=== PATIENT | male | born 1945 | race Caucasian/White ===

== ENCOUNTER 2020-06-15 09:09 | Day surgery (SDC) | payer MEDICARE, BC ==
[~2020-06-15 09:09] MED LIST: CHONDR SU A NA/HYALUR INTRAOC KIT (SURGICARE) ONE; EPINEPHRINE INJ/PF 1 MG/1 ML AMPULE ONE; KETOROLAC TROMETHAMINE 0.45% 4 DROP/0.4 ML DROPERETTE OS PRN; LIDOCAINE 1%/PHENYLEPHRINE 1.5% 1 ML VIAL ONE
[2020-06-15] MEDS: TROPICAMIDE 1% OPH SOLN 15 ML OS PRN ×3 (09:28→09:48)
[2020-06-15] MEDS: BESIFLOXACIN HCL 0.6% OPH SUSP 5 ML BOTTLE OS PRN ×4 (09:28→10:35)
[2020-06-15] MEDS: CYCLOPENTOLATE 0.2%/PHENYLEPHRINE 1% OPH SOLN 2 ML OS PRN ×3 (09:28→09:48)
[2020-06-15] MEDS: TETRACAINE HCL 0.5% OPH SOLN 4 ML OS PRN ×3 (09:29→10:06)
[2020-06-15] MEDS ORDERED: MIDAZOLAM 2 MG/2 ML INJ ONE (09:49)
[2020-06-15] MEDS ORDERED: FENTANYL CITRATE INJ/PF 100 MCG/2 ML AMPUL ONE (09:49)
[2020-06-15] MEDS: DORZOLAMIDE HCL 2%/TIMOLOL MALEAT 0.5% OPH SOLN 10 ML OS PRN ×2 (10:35)
[2020-06-15] MEDS: PREDNISOLONE ACETATE 1% OPH SUSP 5 ML OS PRN ×2 (10:35)
--- OUTSIDE RECORDS SUMMARY | 2020-06-15 14:30 | XMS REPORT ---
:1945 [facility] [place] [address] [place] [address] Care Team Providers Name Role Phone Kandy Primary Care Physician Unavailable Kandy BERGERON Attending Clinician Unavailable Eugene Wilkins Attending Clinician Unavailable Leah Baker Attending Clinician Unavailable Allergies, Adverse Reactions, Alerts This patient has no known allergies or adverse reactions. Medications Ordered Filled Start Stop Current Ordering Indication Dosage Frequency Signature Comments Components Medication Medication Date Date Medication? Clinician (SIG) Name Name Rosuvastati 2019-05 Yes Hipolito Rosuvastat n Calcium 1-06 Kandy BERGERON in Calcium 10 MG Oral 14:59: 10 MG Oral Tablet 03 Tablet Take 1 tablet by mouth once daily Quantity: 90 Refills: 0 Hipolito Gaitan MD Start : 31-Mar-2020 Active Rosuvastati 2019- No Hipolito Holguinuvastat n Calcium 8-05 Kandy BERGERON in Calcium 10 MG Oral 09:11: 10 MG Oral Tablet 51 Tablet Take 1 tablet by mouth once daily Quantity: 90 Refills: 0 Hipolito Gaitan MD Start : 29-Dec-2019 Active Montelukast 2019- Yes Hipolito Montelukas Sodium 10 3- Kandy BERGERON t Sodium MG Oral 00:00: 10 MG Oral Tablet 00 Tablet TAKE 1 TABLET IN THE EVENING. Quantity: 90 Refills: 3 Hipolito Gaitan MD Start : 0Active metFORMIN 2017-0 Yes Hipolito metFORMIN HCl ER 500 8- Kandy BERGERON HCl ER 500 MG Oral 00:00: MG Oral Tablet 00 Tablet Extended Extended Release 24 Release 24 Hour Hour TAKE 1 TABLET BY MOUTH ONCE A DAY DIRECTED Quantity: 90 Refills: 3 Hipolito Gaitan MD Start : 29-Dec-2017 Active Sildenafil 2017- Yes Hipolito Sildenafil Citrate 20 9-05 Kandy BERGERON Citrate 20 MG Oral 00:00: MG Oral Tablet 00 Tablet Take 3 tablest 1 hour prior to intercours e. Quantity: 60 Refills: 6 Hipolito Gaitan MD Start : 28-Jan-2017 Active Amoxicillin Yes General 875MG TWO TIMES /Pot 12-21 Acute Care DAILY Clavulanate 00:00: Hospital 00 Azithromyci Yes General 0MG EVERY DAY n 7 Acute Care 00:00: Hospital 00 Lisinopril 2015-05 Yes General 20MG EVERY DAY 0 Acute Care 00:00: Hospital 00 Rosuvastati 2015-05 Yes General 10MG EVERY DAY n Calcium Acute Care 00:00: Hospital 00 Omeprazole 2015-05- No General 40MG EVERY DAY 012-21 Acute Care 00:00: 09:40 Hospital 00 :00 Levofloxaci 2015-05- No General 750MG EVERY DAY n 0-12-21 Acute Care 00:00: 09:40 Hospital 00 :00 Hydrocodone 2015-05- No General 5ML Q6H PRN Bit/Homatro 12-21 Acute Care For Cough pine 00:00: 09:40 Hospital 00 :00 Omeprazole Yuan Mcmillan Omeprazole 40 MG Oral 01-21 Kandy BERGERON 40 MG Oral Capsule 00:00: Capsule Delayed 00 Delayed Release Release Take 1 capsule by mouth every morning Quantity: 90 Refills: 3 Hipolito Gaitan MD Start : 1Active Lisinopril Yes Hipolito Lisinopril 40 MG Oral 08-15 Kandy BERGERON 40 MG Oral Tablet 00:00: Tablet 00 Take 1 tablet by mouth once daily Quantity: 90 Refills: 3 Hipolito Gaitan MD Start : 0Active Crestor 10 Yes Hipolito Crestor 10 MG Oral 01-11 Kandy MD MG Oral Tablet 00:00: Tablet 00 Take 1 tablet by mouth once daily Quantity: 90 Refills: 3 Hipolito Gaitan MD Start : 9Active Orphenadrin Yes Hipolito 1 Q0.5D Orphenadri e Citrate 01-11 Kandy BERGERON ne Citrate ER 100 MG 00:00: ER 100 MG Oral Tablet 00 Oral Extended Tablet Release 12 Extended Hour Release 12 Hour TAKE 1 TABLET TWICE DAILY PRN Quantity: 60 Refills: 6 Hipolito Gaitan MD Start : 9Active Problems Condition Condition Condition Status Onset Resolution Last Treatin g Comments Name Details Category Date Date Treatment Clinician Date Problem Not on file Condition Colon, Colon, Problem Active diverticulo diverticulo sis sis Chest wall Chest wall Problem Active shadow shadow image image Solitary Solitary Problem Active pulmonary pulmonary nodule nodule Encounter Encounter Problem Active for for immunizatio immunizatio n n Dyspepsia Dyspepsia Problem Active Urinary Urinary Problem Active frequency frequency Elevated Elevated Problem Active transaminas transaminas e level e level Benign Benign Problem Active hypertensiv hypertensiv e heart e heart disease disease 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 BPH (benign BPH (benign Problem Active prostatic prostatic hyperplasia hyperplasia ) ) Pre-diabete Pre-diabete Problem Active s s 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 Acute upper Acute upper Problem Inactiv respiratory respiratory e infection infection Heat Heat Finding Inactiv exhaustion exhaustion e Hematuria Hematuria Finding Inactiv e Pneumonia Pneumonia Finding Inactiv e Procedures Procedure Date / Time Performed Performing Clinician Devic e HGBA1C 2020-03-07 00:00:00 CMP(Complete Metabolic Panel) 2020-03-07 00:00:00 CBC 2020-03-07 00:00:00 PSA 2020-03-07 00:00:00 LACTATE 2016-12-21 13:48:00 Rei Wilkins URINALYSIS 2016-12-21 10:08:00 Rei Wilkins COMPREHENSIVE METABOLIC PANEL 2016-12-21 09:47:00 Moshe Huerta opedic Pt For CBC W/ DIFFERENTIAL 2016-12-21 09:47:00 Bradley, Orthopedic Pt For POCT GLUCOSE 2016-12-21 09:43:00 Bradley, Orthopedic Pt For CHEST PA AND LATERAL 2016-12-21 00:00:00 ROUTINE VENIPUNCTURE 2016-12-21 00:00:00 Urine Culture 2016-12-21 00:00:00 Blood Culture 2016-12-21 00:00:00 COMPREHENSIVE METABOLIC PANEL 2016-02-25 17:58:00 Lindy Ye CBC W/ DIFFERENTIAL 2016-02-25 17:58:00 Chloe Ye l TROPONIN I 2016-02-25 17:58:00 Chloe Ye URINALYSIS 2016-02-25 17:11:00 Bradley, Orthopedic Pt For URINE MICROSCOPIC 2016-02-25 17:11:00 Bradley, Orthopedic Pt For CHEST PA AND LATERAL 2016-02-25 00:00:00 History of Knee Surgery Results Test Description Test Time Test Comments Text Results Atomic Results Result Comments CBC 2020-03-07 09:24:00 Test Item Value Reference Range Comments White Blood Cell (test code = White Blood Cell) 6.5 K/uL 3.5-11.1 Red Blood Cell (test code = Red Blood Cell) 4.38 {M/uL} 4.27 -5.49 Hemoglobin (test code = Hemoglobin) 13.4 g/dL 12.9-16.1 Hematocrit (test code = Hematocrit) 41 % 38-47 Mean Corpuscular Volume (test code = Mean Corpuscular Volume) 93 .4 fL 79.0-95.0 Mean Corpuscular Hemoglobin (test code = Mean Corpuscular 30.6 p g/mL 27.0-33.0 Hemoglobin) Mean Corpuscular Hemoglobin Concentration (test code = Mean 32.8 g/dL 33.5-35.5 Corpuscular Hemoglobin Concentration) Red Cell Distribution Width (test code = Red Cell 13.2 % 12.0-15.0 Distribution Width) Platelet (test code = Platelet) 136 K/uL 130-353 Mean Platelet Volume (test code = Mean Platelet Volume) 12.5 fL 7.5-10.7 Neutrophil Count, absolute (test code = Neutrophil Count, 3.7 K/ uL 1.9-7.2 absolute) Neutrophil Count Percentage (test code = Neutrophil Count 57.6 % 43.0-72.0 Percentage) Lymphocyte Count, absolute (test code = Lymphocyte Count, 1.8 K/ uL 1.1-2.7 absolute) Lymphocyte Count Percentage (test code = Lymphocyte Count 28.3 % 17.0-44.0 Percentage) Monocyte Count, absolute (test code = Monocyte Count, 0.7 K/uL 0.3-0.8 absolute) Monocyte Count Percentage (test code = Monocyte Count 10.4 % 4.5-12.4 Percentage) Eosinophil Count, absolute (test code = Eosinophil Count, 0.2 K/ uL 0.0-0.5 absolute) Eosinophil Count Percentage (test code = Eosinophil Count 2.8 % 0.7-7.8 Percentage) Basophil Count, absolute (test code = Basophil Count, 0.0 K/uL 0.0-0.1 absolute) Basophil Count Percentage (test code = Basophil Count 0.6 % 0.2-1.1 Percentage) Nucleated Red Blood Cell, absolute (test code = Nucleated Re d 0.00 K/uL 0.00-0.00 Blood Cell, absolute) Nucleated Red Blood Cell, percentage (test code = Nucleated 0.00 % 0.00-0.00 Red Blood Cell, percentage) Hemoglobin [id number] 09:24:00 Test Item Value Reference Range Comments Hemoglobin A1C (test code = 4548-4) 6.2 % 4.3-6.2 CMP(Complete Metabolic Panel)2020-03-07 09:24:00 Test Item Value Reference Range Comments Glucose (test code = Glucose) 121 mg/dL 74-106 Sodium (test code = Sodium) 143 mmol/L 135-145 Potassium (test code = Potassium) 4.1 mmol/L 3.5-5.3 Chloride (test code = Chloride) 104 mmol/L 98-107 CO2 (test code = CO2) 28 mmol/L 22-30 Creatinine, serum (test code = Creatinine, serum) 0.70 mg/dL 0.10-1.25 Glomerular Filtration Rate (test code = >60 >60 Glomerular Filtration Rate) Glomerular Filtration Rate AA (test code = >60 >60 Glomerular Filtration Rate AA) Blood Urea Nitrogen (test code = Blood Urea 16 mg/dL 9-20 Nitrogen) Calcium (test code = Calcium) 9.4 mg/dL 8.4-10.5 Phosphorus (test code = Phosphorus) 3.1 mg/dL 2.5-4.5 Total Protein (test code = Total Protein) 8.2 g/dL 6.3-8. 2 Albumin (test code = 17437-6) 4.5 g/dL 3.5-5.0 Total Bilirubin (test code = Total Bilirubin) 0.6 mg/dL 0. 2-1.3 Bilirubin, unconj (test code = Bilirubin, unconj) 0.4 mg/dL 0.0-1.1 Bilirubin, Direct (test code = Bilirubin, Direct) 0.2 mg/dL 0.0-0.4 Alkaline Phosphatase (test code = Alkaline 74 U/L 20-15 0 Phosphatase) Alanine Transaminase (test code = Alanine 24 U/L 0-50 Transaminase) Aspartate Aminotransferase (test code = Aspartate 27 U/L 3-36 Aminotransferase) [id number] 09:24:00 Test Item Value Reference Range Comments PSA, total (test code = 1.030 ng/mL 0.000-4.000 PSA perf ormed on Vitros 5600 by PSA, total) Immunometric met hod. [id number] 13:48:00 Test Item Value Reference Range Comments Lactate (test code = Lactate) 0.8 mmol/L 0.5- 2.2 mmol/L Lab - Lactic Acid [id number] 13:48:00 Test Item Value Reference Range Comments Lactic Acid Level (test 0.8 mmol/L 0.5-2.2 Specimen s should be processed code = 59438-6) within 15 minute s of collection and analyzed wit hout delay. Blood [id number] 12:22:00Blood Culture, Routine Comment: BLOOD CULTURE PERIPHERALFinal NO GROWTH - FINAL READ COMMENTS: @---MOBILAB COMMENT--- @ Blood Culture, 2nd Set [[id number] 12/21/16 1216] @---END MOBILAB COMMENT--- [facility] CONVERSION[facility] Culture 2016-12-21 12:16:00Blood Culture, Routine Comment: BLOOD CULTURE PERIPHERALFinal NO GROWTH - FINAL READ [facility] CON[facility] - Urine [id number] 10:08:00 Test Item Value Reference Range Comments Urine Mucus (test code = 8247-9) Rare /LPF Lab - Urine Leukocyte [id number] 10:08:00 Test Item Value Reference Range Comments Urine Leukocyte Esterase (test code = Negative WBC/UL 06043-2) Lab - Urine [id number] 10:08:00 Test Item Value Reference Range Comments Urine Ketones (test code = 22337-6) 20 MG/DL Lab - Urine [id number] 10:08:00 Test Item Value Reference Range Comments Urine Ictotest (test code = 56484-2) Not Reportable Lab - Urine Glucose (UA)2016-12-21 10:08:00 Test Item Value Reference Range Comments Urine Glucose (UA) (test code = 64715-5) Negative MG/DL Lab - Urine [id number] 10:08:00 Test Item Value Reference Range Comments Urine Color (test code = 20327-3) Yellow Lab - Urine [id number] 10:08:00 Test Item Value Reference Range Comments Urine Clarity (test code = 28342-9) Clear Lab - Urine [id number] 10:08:00 Test Item Value Reference Range Comments Urine Blood (test code = 93991-4) Small MG/DL Lab - Urine [id number] 10:08:00 Test Item Value Reference Range Comments Urine Bilirubin (test code = 06090-0) Negative MG/DL Lab - Urine Amorphous [id number] 10:08:00 Test Item Value Reference Range Comments Urine Amorphous Sediment (test code = 8246-1) Trace /HPF Lab - Urine [id number] 10:08:00 Test Item Value Reference Range Comments Urine Source (test code = Urine Source) Clean catch [id number] 10:08:00 Test Item Value Reference Range Comments Urine Source (test code = Urine Source) CLEAN CATCH Color, UA (test code = Color, UA) YELLOW YELLOW Urobilinogen, UA (test code = Urobilinogen, UA) 2.0 E.U./DL 0.2- 1.0 E.U./DL pH, UA (test code = pH, UA) 6.0 5.0-8.0 Protein, Ur (test code = Protein, Ur) 100 MG/DL NEGATIVE M G/DL Blood, UA (test code = Blood, UA) SMALL NEGATIVE MG/DL RBC, UA (test code = RBC, UA) 6-10 0- 5 #/HPF WBC, UA (test code = WBC, UA) 0-5 0- 5 #/HPF Trans Epithel, UA (test code = Trans Epithel, 0-5 0- 5 #/HPF UA) Amorphous Crystal, UA (test code = Amorphous TRACE TRA CE /HPF Crystal, UA) Specific Joice, Urine (test code = Specific 1.024 1. 000-1.060 Joice, Urine) Glucose, UA (test code = Glucose, UA) NEGATIVE NEGATIVE M G/DL Ketones, UA (test code = Ketones, UA) 20 MG/DL NEGATIVE M G/DL Nitrite, UA (test code = Nitrite, UA) NEGATIVE NEGATIVE Leukocyte Esterase, UA (test code = Leukocyte NEGATIVE NE GATIVE WBC/UL Esterase, UA) Clarity, UA (test code = Clarity, UA) CLEAR CLEAR Bilirubin, UA (test code = Bilirubin, UA) NEGATIVE NEGATI VE MG/DL Mucus, UA (test code = Mucus, UA) RARE Hyaline Casts, UA (test code = Hyaline Casts, 0-5 NO NE SEEN #/LPF UA) Lab - Urine Hyaline [id number] 10:08:00 Test Item Value Reference Range Comments Urine Hyaline Casts (test code = 08422-4) 0-5 #/LPF Lab - Urine [id number] 10:08:00 Test Item Value Reference Range Comments Urine pH (test code = 96043-6) 6.0 Lab - Urine [id number] 10:08:00 Test Item Value Reference Range Comments Urine WBC (test code = Urine WBC) 0-5 #/HPF Lab - Urine [id number] 10:08:00 Test Item Value Reference Range Comments Urine Urobilinogen (test code = 53717-4) 2.0 E.U./DL Lab - Urine Specific Joice (Refractom)2016-12-21 10:08:00 Test Item Value Reference Range Comments Urine Specific Joice (Refractom) (test code Not Reportable = 5810-7) Lab - Urine Specific [id number] 10:08:00 Test Item Value Reference Range Comments Urine Specific Joice (test code = 55544-3) 1.024 Lab - Urine [id number] 10:08:00 Test Item Value Reference Range Comments Urine RBC (test code = 37255-7) 6-10 #/HPF Lab - Urine [id number] 10:08:00 Test Item Value Reference Range Comments Urine Protein (test code = 86476-4) 100 MG/DL Lab - Urine [id number] 10:08:00 Test Item Value Reference Range Comments Urine Nitrite (test code = 53904-2) Negative Urine [id number] 10:08:00Urine Culture, Comprehensive Comment: URINE CULTUREFinal NO GROWTH DAY 2 [facility] - Total [id number] 09:47:00 Test Item Value Reference Range Comments Total Protein (test code = 2885-2) 8.2 g/dL 6.1-8.0 Lab - Total [id number] 09:47:00 Test Item Value Reference Range Comments Total Bilirubin (test code = 0.85 mg/dL 0.30-1.20 Ben ples taken from patients 1975-2) who have taken N aproxen have shown spurious e levation in Total Bilirubin levels. A metabolite of Na proxen (O-Desmethylnapr oxen) has been shown to in terfere with the Sola-Samantha de paz method for measuring To citlaly Bilirubin. Lab - Sodium [id number] 09:47:00 Test Item Value Reference Range Comments Sodium Level (test code = 2951-2) 133 mmol/L 135-153 Lab - Potassium [id number] 09:47:00 Test Item Value Reference Range Comments Potassium Level (test code = 2823-3) 3.9 mmol/L 3.5-5.3 Lab - Glucose [id number] 09:47:00 Test Item Value Reference Range Comments Glucose Level (test code = 2345-7) 192 mg/dL 70-110 Lab - [id number] 09:47:00 Test Item Value Reference Range Comments Globulin (test code = 20065-3) 4.5 g/dL 2.3-3.5 Lab - Estimated GFR (MDRD)2016-12-21 09:47:00 Test Item Value Reference Range Comments Estimated GFR (MDRD) (test code > 60 60-100 eGFR by MDRD equation. Units = 80059-3) mL/min./1.73m sq . Less than 60 suggests signifi cant renal disease. Lab - Estimated Creatinine Clearance [id number] 09:47:00 Test Item Value Reference Range Comments Estimated Creatinine 74.4 ML/MIN >60 Estimated c reatinine Clearance Calc (test code = derrick palencia calculated by Estimated Creatinine Cockcroft-G tal method. Clearance Calc) Lab - [id number] 09:47:00 Test Item Value Reference Range Comments Creatinine (test code = 2160-0) 1.0 mg/dL 0.5-1.2 Lab - Chloride [id number] 09:47:00 Test Item Value Reference Range Comments Chloride Level (test code = 2075-0) 99 mmol/L 96-112 Lab - Carbon Dioxide [id number] 09:47:00 Test Item Value Reference Range Comments Carbon Dioxide Level (test code = 8-9) 23 mmol/L 23-33 Lab - Calculated [id number] 09:47:00 Test Item Value Reference Range Comments Calculated Osmolality (test code = Calculated 273 26 6-308 Osmolality) Lab - Calcium [id number] 09:47:00 Test Item Value Reference Range Comments Calcium Level (test code = 16669-0) 8.8 mg/dL 8.7-10.7 Lab - Blood Urea [id number] 09:47:00 Test Item Value Reference Range Comments Blood Urea Nitrogen (test code = 3094-0) 18 mg/dL 7-22 Lab - BUN/Creatinine [id number] 09:47:00 Test Item Value Reference Range Comments BUN/Creatinine Ratio (test code = 3097-3) 18 15-24 Lab - Aspartate Amino Transf (AST/SGOT)2016-12-21 09:47:00 Test Item Value Reference Range Comments Aspartate Amino Transf (AST/SGOT) (test code = 17 U/L 1 2-45 46007-0) Lab - Anion [id number] 09:47:00 Test Item Value Reference Range Comments Anion Gap (test code = 76328-5) 11 mmol/L 5-15 Lab - Alkaline [id number] 09:47:00 Test Item Value Reference Range Comments Alkaline Phosphatase (test code = 6768-6) 67 U/L 37-107 Lab - Albumin/Globulin [id number] 09:47:00 Test Item Value Reference Range Comments Albumin/Globulin Ratio (test code = 1759-0) 0.8 1.1- 1.8 Lab - [id number] 09:47:00 Test Item Value Reference Range Comments Albumin (test code = 1751-7) 3.7 g/dL 3.2-4.6 Lab - Alanine Aminotransferase (ALT/SGPT)2016-12-21 09:47:00 Test Item Value Reference Range Comments Alanine Aminotransferase (ALT/SGPT) (test code = 15 U/L 10-40 1743-4) Lab - White Blood [id number] 09:47:00 Test Item Value Reference Range Comments White Blood Count (test code = 24927-8) 13.8 K/mm3 4.5-13.0 Lab - Red Cell Distribution [id number] 09:47:00 Test Item Value Reference Range Comments Red Cell Distribution Width (test code = 788-0) 13.1 % 11.0-15.0 Lab - Red Blood [id number] 09:47:00 Test Item Value Reference Range Comments Red Blood Count (test code = 789-8) 4.19 M/mm3 3.10-5.80 Lab - Platelet [id number] 09:47:00 Test Item Value Reference Range Comments Platelet Count (test code = 777-3) 134 K/mm3 140-400 Lab - Neutrophils (%) (Auto)2016-12-21 09:47:00 Test Item Value Reference Range Comments Neutrophils (%) (Auto) (test code = 770-8) 83.3 % 42.2- 75.2 Lab - Neutrophils # (Auto)2016-12-21 09:47:00 Test Item Value Reference Range Comments Neutrophils # (Auto) (test code = 751-8) 11.5 K/mm3 1.8-8.0 Lab - Monocytes (%) (Auto)2016-12-21 09:47:00 Test Item Value Reference Range Comments Monocytes (%) (Auto) (test code = 5905-5) 8.3 % 1.7-9. 3 Lab - Monocytes # (Auto)2016-12-21 09:47:00 Test Item Value Reference Range Comments Monocytes # (Auto) (test code = IPX2147) 1.1 K/mm3 0-0.9 Lab - Mean Platelet [id number] 09:47:00 Test Item Value Reference Range Comments Mean Platelet Volume (test code = 34808-7) 10.0 fL 6.0-9 .5 Lab - Mean Corpuscular [id number] 09:47:00 Test Item Value Reference Range Comments Mean Corpuscular Volume (test code = 787-2) 92.8 fL 78-1 00 Lab - Mean Corpuscular Hemoglobin [id number] 09:47:00 Test Item Value Reference Range Comments Mean Corpuscular Hemoglobin Concent (test code = 34.1 g/dl 31-36 786-4) Lab - Mean Corpuscular [id number] 09:47:00 Test Item Value Reference Range Comments Mean Corpuscular Hemoglobin (test code = 785-6) 31.6 pg 25-35 Lab - Lymphocytes (%) (Auto)2016-12-21 09:47:00 Test Item Value Reference Range Comments Lymphocytes (%) (Auto) (test code = 736-9) 7.7 % 20.5- 51.1 Lab - Lymphocytes # (Auto)2016-12-21 09:47:00 Test Item Value Reference Range Comments Lymphocytes # (Auto) (test code = 731-0) 1.1 K/mm3 1.2-5.2 Lab - [id number] 09:47:00 Test Item Value Reference Range Comments Hemoglobin (test code = 718-7) 13.3 G/DL 12.0-16.9 Lab - [id number] 09:47:00 Test Item Value Reference Range Comments Hematocrit (test code = Hematocrit) 38.9 % 36.0-49.0 Lab - Eosinophils (%) (Auto)2016-12-21 09:47:00 Test Item Value Reference Range Comments Eosinophils (%) (Auto) (test code = 713-8) 0.3 % 0-10 Lab - Eosinophils # (Auto)2016-12-21 09:47:00 Test Item Value Reference Range Comments Eosinophils # (Auto) (test code = 711-2) 0.0 K/mm3 0-0.6 Lab - Basophils (%) (Auto)2016-12-21 09:47:00 Test Item Value Reference Range Comments Basophils (%) (Auto) (test code = 27865-2) 0.4 % 0-3.0 Lab - Basophils # (Auto)2016-12-21 09:47:00 Test Item Value Reference Range Comments Basophils # (Auto) (test code = 704-7) 0.1 K/mm3 0.0-0.2 CBC w/ [id number] 09:47:00 Test Item Value Reference Range Comments RBC (test code = RBC) 4.19 M/mm3 3.10- 5.80 M/mm3 HCT (test code = HCT) 38.9 % 36.0- 49.0 % MCH (test code = MCH) 31.6 pg 25- 35 pg MPV (test code = MPV) 10.0 fL 6.0- 9.5 fL Neutrophils (Absolute) (test code = Neutrophils 11.5 K/mm3 1.8- 8.0 K/mm3 (Absolute)) Baso (Absolute) (test code = Baso (Absolute)) 0.1 K/mm3 0. 0- 0.2 K/mm3 WBC (test code = WBC) 13.8 K/mm3 4.5- 13.0 K/mm3 HGB (test code = HGB) 13.3 G/DL 12.0- 16.9 G/DL Lymphocytes % (test code = Lymphocytes %) 7.7 % 20.5- 51.1 % Eosinophils % (test code = Eosinophils %) 0.3 % 0- 10 % Basophils % (test code = Basophils %) 0.4 % 0- 3.0 % Eos (Absolute) (test code = Eos (Absolute)) 0 K/mm3 0- 0 .6 K/mm3 REPEAT AUTO DIFF (test code = REPEAT AUTO DIFF) YES MCV (test code = MCV) 92.8 fL 78- 100 fL MCHC (test code = MCHC) 34.1 g/dl 31- 36 g/dl Platelet (test code = Platelet) 134 K/mm3 140- 400 K/mm3 Neutrophils % (test code = Neutrophils %) 83.3 % 42.2- 75.2 % RDW (test code = RDW) 13.1 % 11.0- 15.0 % Monocytes % (test code = Monocytes %) 8.3 % 1.7- 9.3 % Lymphs (Absolute) (test code = Lymphs 1.1 K/mm3 1.2- 5.2 K /mm3 (Absolute)) Monocytes(Absolute) (test code = 1.1 K/mm3 0- 0.9 K/mm3 Monocytes(Absolute)) Comprehensive Metabolic [id number] 09:47:00 Test Item Value Reference Range Comments eGFR (test code = eGFR) >60 >60 BUN/Creatinine Ratio (test code = 18 15-24 BUN/Creatinine Ratio) Calcium (test code = Calcium) 8.8 mg/dL 8.7- 10.7 mg/dL CO2 (test code = CO2) 23 mmol/L 23- 33 mmol/L Sodium (test code = Sodium) 133 mmol/L 135- 153 mmol/L Potassium (test code = Potassium) 3.9 mmol/L 3.5- 5.3 mmol/ L Chloride (test code = Chloride) 99 mmol/L 96- 112 mmol/L BUN (test code = BUN) 18 mg/dL 7- 22 mg/dL Globulin, Total (test code = Globulin, Total) 4.5 g/dL 2. 3- 3.5 g/dL Osmolality Calc (test code = Osmolality Calc) 273 26 6-308 Anion Gap (test code = Anion Gap) 11 mmol/L 5- 15 mmol/L Total Protein (test code = Total Protein) 8.2 g/dL 6.1- 8 .0 g/dL Albumin (test code = Albumin) 3.7 g/dL 3.2- 4.6 g/dL ALBUMIN/GLOBULIN RATIO (test code = 0.8 1.1-1.8 ALBUMIN/GLOBULIN RATIO) ALT (test code = ALT) 15 U/L 10- 40 U/L Creatinine (test code = Creatinine) 1.0 mg/dL 0.5- 1.2 mg/ dL Creatinine Clearance (test code = Creatinine 74.4 ML/MIN 60- ML/MIN Clearance) Glucose (test code = Glucose) 192 mg/dL 70- 110 mg/dL Total Bilirubin (test code = Total Bilirubin) 0.85 mg/dL 0. 30- 1.20 mg/dL AST (test code = AST) 17 U/L 12- 45 U/L Alkaline Phosphatase (test code = Alkaline 67 U/L 37- 1 07 U/L Phosphatase) Lab - Bedside Glucose (Misc Panel)2016-12-21 09:43:00 Test Item Value Reference Range Comments Bedside Glucose (Misc Panel) 195.0 mg/dL 70-110 Met er ID: [id number] (test code = Bedside Glucose Ope rator: [id number] (Misc Panel)) POCT [id number] 09:43:00 Test Item Value Reference Range Comments Glucose-POC (test code = Glucose-POC) 195 mg/dL 70- 110 mg /dL Lab - Troponin [id number] 17:58:00 Test Item Value Reference Range Comments Troponin I (test code = 84098-8) < 0.03 ng/mL 0.00-0.49 CBC w/ [id number] 17:58:00 Test Item Value Reference Range Comments RBC (test code = RBC) 4.40 M/mm3 3.10- 5.80 M/mm3 HCT (test code = HCT) 39.7 % 36.0- 49.0 % MCH (test code = MCH) 30.2 pg 25- 35 pg MPV (test code = MPV) 10.4 fL 6.0- 9.5 fL Neutrophils (Absolute) (test code = Neutrophils 15.7 K/mm3 1.8- 8.0 K/mm3 (Absolute)) Baso (Absolute) (test code = Baso (Absolute)) 0 K/mm3 0. 0- 0.2 K/mm3 WBC (test code = WBC) 19.3 K/mm3 4.5- 13.0 K/mm3 HGB (test code = HGB) 13.3 G/DL 12.0- 16.9 G/DL Lymphocytes % (test code = Lymphocytes %) 8.6 % 20.5- 51.1 % Eosinophils % (test code = Eosinophils %) 0.1 % 0- 10 % Basophils % (test code = Basophils %) 0.2 % 0- 3.0 % Eos (Absolute) (test code = Eos (Absolute)) 0 K/mm3 0- 0 .6 K/mm3 REPEAT AUTO DIFF (test code = REPEAT AUTO DIFF) YES MCV (test code = MCV) 90.3 fL 78- 100 fL MCHC (test code = MCHC) 33.5 g/dl 31- 36 g/dl Platelet (test code = Platelet) 155 K/mm3 140- 400 K/mm3 Neutrophils % (test code = Neutrophils %) 81.3 % 42.2- 75.2 % RDW (test code = RDW) 13.7 % 11.0- 15.0 % Monocytes % (test code = Monocytes %) 9.8 % 1.7- 9.3 % Lymphs (Absolute) (test code = Lymphs 1.7 K/mm3 1.2- 5.2 K /mm3 (Absolute)) Monocytes(Absolute) (test code = 1.9 K/mm3 0- 0.9 K/mm3 Monocytes(Absolute)) Comprehensive Metabolic [id number] 17:58:00 Test Item Value Reference Range Comments CO2 (test code = CO2) 25 mmol/L 23- 33 mmol/L eGFR (test code = eGFR) >60 >60 BUN/Creatinine Ratio (test code = 17 15-24 BUN/Creatinine Ratio) Calcium (test code = Calcium) 9.1 mg/dL 8.7- 10.7 mg/dL Sodium (test code = Sodium) 135 mmol/L 135- 153 mmol/L Potassium (test code = Potassium) 4.3 mmol/L 3.5- 5.3 mmol/ L Chloride (test code = Chloride) 98 mmol/L 96- 112 mmol/L BUN (test code = BUN) 17 mg/dL 7- 22 mg/dL Globulin, Total (test code = Globulin, Total) 4.4 g/dL 2. 3- 3.5 g/dL Osmolality Calc (test code = Osmolality Calc) 273 26 6-308 Anion Gap (test code = Anion Gap) 12 mmol/L 5- 15 mmol/L Total Protein (test code = Total Protein) 8.2 g/dL 6.1- 8 .0 g/dL Albumin (test code = Albumin) 3.8 g/dL 3.2- 4.6 g/dL ALBUMIN/GLOBULIN RATIO (test code = 0.9 1.1-1.8 ALBUMIN/GLOBULIN RATIO) ALT (test code = ALT) 19 U/L 10- 40 U/L Creatinine (test code = Creatinine) 1.0 mg/dL 0.5- 1.2 mg/ dL Creatinine Clearance (test code = Creatinine 74.4 mL/min 60- mL/min Clearance) Glucose (test code = Glucose) 126 mg/dL 70- 110 mg/dL Total Bilirubin (test code = Total Bilirubin) 0.99 mg/dL 0. 30- 1.20 mg/dL AST (test code = AST) 21 U/L 12- 45 U/L Alkaline Phosphatase (test code = Alkaline 78 U/L 37- 1 07 U/L Phosphatase) Troponin [id number] 17:58:00 Test Item Value Reference Range Comments Troponin I (test code = Troponin I) <0.03 0.00- 0.49 n g/mL Lab - Urine Prot Sulfosalicylic [id number] 17:11:00 Test Item Value Reference Range Comments Urine Prot Sulfosalicylic Acid (test code = XSO6914) Trace Lab - Urine Fine Granular [id number] 17:11:00 Test Item Value Reference Range Comments Urine Fine Granular Casts (test code = 94947-4) Rare #/LPF Lab - Urine Epithelial [id number] 17:11:00 Test Item Value Reference Range Comments Urine Epithelial Cells (test code = 85223-6) 0-5 #/HPF Lab - Urine [id number] 17:11:00 Test Item Value Reference Range Comments Urine Bacteria (test code = 13893-2) 3+ GAOR/HPF [id number] 17:11:00 Test Item Value Reference Range Comments pH, UA (test code = pH, UA) 5.5 5.0-8.0 Protein, Ur (test code = Protein, Ur) TRACE NEGATIVE M G/DL Blood, UA (test code = Blood, UA) TRACE NEGATIVE Urine Source (test code = Urine Source) CLEAN CATCH Color, UA (test code = Color, UA) DK YELLOW YELLOW Urobilinogen, UA (test code = Urobilinogen, UA) 1.0 E.U./DL 0.2- 1.0 E.U./DL Clarity, UA (test code = Clarity, UA) CLOUDY CLEAR Bilirubin, UA (test code = Bilirubin, UA) NEGATIVE NEGATI VE Specific Joice, Urine (test code = Specific 1.019 1. 005-1.030 Joice, Urine) Glucose, UA (test code = Glucose, UA) NEGATIVE NEGATIVE M G/DL Ketones, UA (test code = Ketones, UA) TRACE NEGATIVE M G/DL Nitrite, UA (test code = Nitrite, UA) NEGATIVE NEGATIVE Leukocyte Esterase, UA (test code = Leukocyte NEGATIVE NE GATIVE Esterase, UA) SSA (test code = SSA) TRACE NEGATIVE Urine [id number] 17:11:00 Test Item Value Reference Range Comments RBC, UA (test code = RBC, UA) 5-10 0-5 WBC, UA (test code = WBC, UA) 0-5 0- 5 #/HPF Hyaline Casts, UA (test code = Hyaline Casts, UA) 0-5 NONE SEEN #/LPF Renal Epithel, UA (test code = Renal Epithel, UA) 0-5 0- 5 #/HPF Granular Casts, UA (test code = Granular Casts, UA) RARE NONE SEEN #/LPF Bacteria, UA (test code = Bacteria, UA) 3+ TRACE BA C/HPF Mucus, UA (test code = Mucus, UA) 2+ TRACE Assessments Condition Name Status Diagnosis Date Treating Clinici an Mixed hyperlipidemia Active Adenomatous polyp of colon Active Benign hypertensive heart disease Active Pre-diabetes Active Adenomatous polyp of colon Active Benign hypertensive heart disease Active BPH (benign prostatic hyperplasia) Active Pre-diabetes Active Acute upper respiratory infection Active Mixed hyperlipidemia Active Pre-diabetes Active Encounter for immunization Active Mixed hyperlipidemia Active Benign hypertensive heart disease Active BPH (benign prostatic hyperplasia) Active Family history of lung cancer Active Encounter for immunization Active Pre-diabetes Active Benign hypertensive heart disease Active Elevated transaminase level Active Mixed hyperlipidemia Active Pre-diabetes Active Benign hypertensive heart disease Active BPH (benign prostatic hyperplasia) Active Encounters Start End Encounter Admission Attending Care Care Encounter ID Date/Time Date/Time Type Type Clinicians Facility Department 2020-06-13 2020-06-13 Appointment; [facility] [id number] 11:45:00 15:45:37 Covid Vaccine, [place] 2020-03-07 2020-03-07 [facility] [id number] 08:45:00 08:45:00 Hipolito Gaitan MD 2019-08-04 2019-08-04 Appointment; JAD Gaitan [facility] [id number] 08:45:00 08:45:00 Hipolito Gaitan MD 2019-02-03 2019-02-03 [facility]ment; [facility] [id number] 08:45:00 08:45:00 Hipolito Gaitan MD 2018-07-31 2018-07-31 [facility] [id number] 08:45:00 08:45:00 Hipolito Gaitan MD 2018-04-02 2018-04-02 [facility] [id number] 10:45:00 10:45:00 Hipolito Gaitan MD 2017-12-29 2017-12-29 [facility] [id number] 08:45:00 08:45:00 Hipolito Gaitan MD 2016-12-21 2016-12-21 Outpatient ER Teodoro Wilkins [id number] 09:28:00 14:58:00 2016-12-21 2016-12-21 [facility] [id number] 00:00:00 00:00:00 2016-12-21 2016-12-21 [facility] [id number] 00:00:00 00:00:00 2016-12-21 2016-12-21 [facility] [id number] 00:00:00 00:00:00 2016-02-25 2016-02-25 Outpatient ER ROBY Baker [id number] 16:55:00 19:40:00 [place] 2016-02-25 2016-02-25 [facility] [id number] 00:00:00 00:00:00 2016-02-25 2016-02-25 [facility] [id number] 00:00:00 00:00:00 Family History Family Member Diagnosis Comments Start Date Stop Date Unspecified Family history of Coronary Artery Family History Disease Unspecified Family history of Diabetes Mellitus Family History Brother Family history of lung cancer Brother Family history of Adenocarcinoma Of Large Intestine Immunizations Ordered Immunization Filled Immunization Date Status Commen ts Refusal Reason Name Name Ganipara 2020-06-13 Completed COVID-19 Vacc 30 15:32:00 MCG/0.3ML Intramuscular Suspension Fluzone High-Dose 2020-03-07 Completed Quadrivalent 0.7 ML 09:23:00 Intramuscular Suspension Prefilled Syringe Fluzone High-Dose 0.5 2018-04-02 Completed ML Intramuscular 10:59:00 Suspension Prefilled Syringe Influenza 2016-04-24 Completed 08:58:00 Influenza 2015-03-09 Completed 00:00:00 Pneumo (Prevnar) 2013-04-01 Completed 09:26:00 Influenza 2012-02-17 Completed 00:00:00 Pneumococcal 2011-04-06 Completed polysaccharide 00:00:00 vaccine, 23 valent Tdap (Adacel) 2011-01-21 Completed 09:12:00 Payers Payer Name Policy Type Policy Number Effective Date Expiration D ate Plan of Treatment Planned Activity Planned Date Details Comments Future Scheduled Test [code = ] Future Scheduled Test [code = ] Future Scheduled Test [code = ] Future Scheduled Test [code = ] Future Scheduled Test [code = ] Future Scheduled Test [code = ] Social History Smoking Status Start Date Stop Date Ex-smoker (finding) Vital Signs Vital Name Observation Time Observation Value Comments Systolic blood pressure 2020-03-07 09:19:00 138 mm[Hg] Diastolic blood pressure 2020-03-07 09:19:00 80 mm[Hg] Body height 2020-03-07 08:50:00 70.5 [in_us] Weight 2020-03-07 08:50:00 206 [lb_av] Body mass index (BMI) [Ratio] 2020-03-07 08:50:00 29.14 kg/m2 Body temperature 2020-03-07 08:50:00 97.7 [degF] Heart Rate 2020-03-07 08:50:00 76 /min Heart Rate 2016-12-21 14:49:00 106 /min Respiratory Rate 2016-12-21 14:49:00 22 /min O2 % BldC Oximetry 2016-12-21 14:49:00 95 % SYSTOLIC BLOOD PRESSURE 2016-12-21 14:49:00 185 mm[Hg] DIASTOLIC BLOOD PRESSURE 2016-12-21 14:49:00 75 mm[Hg] Weight Measured 2016-12-21 09:36:00 212 Body Temperature 2016-12-21 09:36:00 98.6 [degF] BMI (Body Mass Index) 2016-12-21 09:36:00 28.7 kg/m2 HEIGHT 2016-12-21 09:36:00 182.9 cm WEIGHT 2016-12-21 09:36:00 96.162 kg SYSTOLIC BLOOD PRESSURE 2016-02-25 18:54:00 140 mm[Hg] DIASTOLIC BLOOD PRESSURE 2016-02-25 18:54:00 86 mm[Hg] HEIGHT 2016-02-25 16:59:00 182.9 cm WEIGHT 2016-02-25 16:59:00 96.162 kg Hospital Discharge Instructions NameDatesDetailsInstructions not documentedNameDatesDetailsInstructions not documented
--- NOTE | 2020-06-16 10:01 | Operative Report ---
Operative Report-[facility] Operative Report: DATE OF SURGERY: June 16, 2020 PREOPERATIVE DIAGNOSIS: Cataracts, left eye myosis left eye POSTOPERATIVE DIAGNOSIS: Cataract, left eye miosis left eye OPERATION: Complex cataract extraction with insertion of an toric IOL of the left eye. Use of a maluygan ring due to poor pupillary dilation Intraocular Lens Model: [20.0 SN 6 AT 3 lens rotated to 95 degrees] patient underwent surgery for difficulty seeing small print SURGEON: Arnaldo Barth MD ANESTHESIA: Topical PROCEDURE: After obtaining appropriate consent, the patient's left eye was prepped and draped in a sterile fashion as well as the surgeon in the sterile manner and cataract surgery was started. First a paracentesis blade was used to make a side-port incision. Viscoelastic was used to inflate the anterior chamber. Next a 2.4 mm incision was made with a 2.4 mm blade, clear corneal temporarily. Due to poor pupillary dilation and maluygan ring was inserted to expand the pupil A continuous capsulorrhexis was made using a cystotome and Utrata forceps. Following this hydrodissection was carried out to make the lens fully loose and mobile and it was rotated 90 degrees. Following this, a divide and conquer technique was used to phacoemulsify the lens. The remaining cortex was removed with an irrigation/aspiration. Provisc was instilled into the capsular bag to inflate the bag.The intraocular lens was placed. The remaining viscoelastic material was removed with irrigation/aspiration. Following this, the incision was found to be watertight. Besivance and Cosopt was instilled into the eye and a protective shield was placed over the eye. The patient was returned to the postoperative recovery in a stable condition.
== END 2020-06-15 11:07 | disposition home or self-care (01) ==
LOC: SC 09:09
PROVIDERS: ATTEND Internal Medicine
DX: H25.12 Age-related nuclear cataract, left eye (principal); H57.03 Miosis; H04.123 Dry eye syndrome of bilateral lacrimal glands; H35.3131 Nonexudative age-related macular degeneration, bilateral, early dry stage; E11.36 Type 2 diabetes mellitus with diabetic cataract; Z79.84 Long term (current) use of oral hypoglycemic drugs; I10 Essential (primary) hypertension; E78.00 Pure hypercholesterolemia, unspecified; K21.9 Gastro-esophageal reflux disease without esophagitis; Z87.891 Personal history of nicotine dependence
CPT/HCPCS: 66982; 82962; J2250; J3490 ×2; A9270; J0171; J3010; 142